=== PATIENT | male | born 1985 | race Two or more races ===

== ENCOUNTER 2019-06-25 03:21 | Emergency (ER) | payer BC ==
[~2019-06-25] VITALS: Ht 177.8 cm; Wt 90.7 kg
--- NOTE | 2019-06-25 03:35 | NUR ---
BIBRA 88 FOR ETOH FROM A GAS STATION. PT IS A, OX3. RESPONSIVE AND CURRENTLY LIVES AT A SOBER LIVING. VSS. WILL CONT TO MONITOR
[2019-06-25] MEDS ORDERED: IV NS 0.9% 1,000 ML BAG IV ONE ×2 (04:00)
[2019-06-25] MEDS ORDERED: ONDANSETRON HCL/PF 4 MG/2 ML VIAL IV ONE (04:00)
[2019-06-25] MEDS ORDERED: ONDANSETRON HCL/PF 4 MG/2 ML VIAL ONE (04:09)
--- NOTE | 2019-06-25 07:28 | NUR ---
PATIENT IS SLEEPING. EASILY AROUSABLE. VSS. BREATHING EVENLY AND UNLABORED. CONNECTED TO MONITOR.
--- NOTE | 2019-06-25 08:12 | NUR ---
hugo provided w food tray.
--- NOTE | 2019-06-25 08:20 | NUR ---
patient able to ambulate with steady gait, aoX4.made md aware. patient ok to go
--- NOTE | 2019-06-25 08:27 | NUR ---
IV removed. Catheter intact and site benign. Pressure and 4x4 applied to site. No bleeding noted.Patient discharged to home in stable condition. Written and verbal after care instructions given. Patient verbalizes understanding of instruction.
[2019-06-25 08:29] VITALS: BP 126/70
== END 2019-06-25 08:32 | disposition home or self-care (01) ==
LOC: ER 03:22
DX: F10.229 Alcohol dependence with intoxication, unspecified (principal); F17.200 Nicotine dependence, unspecified, uncomplicated; Z90.49 Acquired absence of other specified parts of digestive tract; Y90.8 Blood alcohol level of 240 mg/100 ml or more
CPT/HCPCS: 36415; 80307; 96374; 99283; J2405; J7030; G0480